=== PATIENT | female | born 1960 | race Caucasian/White ===

== ENCOUNTER → 2019-08-30 09:14 | Outpatient (CLI) | payer MEDICARE, MEDICAID, SELFPAY ==
--- NOTE | 2019-08-30 09:20 | MM_ITS ---
PROCEDURE: MM DIG SCREENING MAMM BI W/CAD Digital Breast Tomosynthesis Included CLINICAL INDICATION: screening There is no personal or family history of breast cancer. COMPARISON: There are no previous exams available for review. TECHNIQUE: Standard CC and MLO images and 3D Tomosynthesis was obtained. R2 CAD reviewed. FINDINGS: Scattered fibroglandular densities are seen in both breasts on a background of fatty breast parenchyma. There are few benign-appearing microcalcifications right breast and a single microcalcification left breast. There is a small benign-appearing nodular density outer quadrant left breast with smooth borders and likely a small cyst. There is no suspicious lesion and no suspicious microcalcifications. IMPRESSION: Fatty type breast parenchyma with no suspicious lesions seen BI-RAD Category: 2 Benign Finding(s) FOLLOW-UP: 1YR 1 Year Follow-up (A letter has been sent to the patient regarding results of the study.) Dictated by: Dr. Jose Alberto Arechiga MD 09/01/2019 12:[address] Jose Alberto Arechiga MD in [place] 09/01/2019 12:08
== END ==
PROVIDERS: PCP Nurse Practitioner Family; Visit Provider Nurse Practitioner Family
DX: Z12.31 Encounter for screening mammogram for malignant neoplasm of breast (principal); R06.02 Shortness of breath
CPT/HCPCS: 77063; 77067; 94060

== ENCOUNTER 2019-09-21 07:06 | Day surgery (SDC) | payer MEDICARE, MEDICAID, SELFPAY ==
[2019-09-21 07:24] VITALS: BMI 22.6
[2019-09-21 07:29] VITALS: BP 150/90; PULSE 78; RESP 18; TEMP 36.9; O2SAT 96
--- NOTE | 2019-09-21 07:42 | SUR.PREOP ---
Pt did not have Covid test prior to coming in today. Pt said no one called her but nurses left 2 messages with pt about information when to come in for Covid test and to call us back. Verified phone number is correct but says she will not answer phone if caller ID does not say who is calling. Covid rapid test drawn in pre-op.
[2019-09-21 08:36] LABS: Coronavirus 19 IgG Antibody Positive (Negative); Coronavirus 19 IgM Antibody Negative (Negative)
--- NOTE | 2019-09-21 08:50 | P.PN_ITS ---
[facility] Anesthesia Checklist - Patient Identification Patient Identification: Arm Band, Verbal (Name & ) - Structural Data Admitted From: Home Planned Operative Procedure/s: Colonoscopy Consent for Planned Operative Procedure(s) Verified: Yes Verified Documents: Surgical Consent, History and Physical - NPO Status Verified Time NPO: 00:00 - Chart Verification Results Verified: None - Additional verifications Anesthesia Reactions: No - Airway Assessment C-Spine Mobility Assessed: Yes TMJ Mobility Assessed: Yes Dentition: Dentures-good fit (upper denture, lower missing teeth) - Neurological Assessment Level of Consciousness: Awake, Alert, Appropriate, Follows Commands Hx Seizures: Yes (06/2019) Numbness or tingling in extremities: No - Anesthesia Plan Anesthesia Risk discussed: Yes Anesthesia Plan: Verified ASA Class: III Anesthesia Type: MAC [facility] History I have reviewed the patient's past medical history: Yes Medical History: Reports:: Anxiety, Congestive Heart Failure, Chronic Obstructive Pulmonary Disease (COPD), Coronary Artery Disease, Depression, Hypertension, Seizures (last seizure 2 months ago) Denies:: Cancer, Diabetes Mellitus Type 1, Diabetes Mellitus Type 2, MRSA *Have you ever received a pneumonia vaccine?: Yes *Have you received a flu vaccine this season?: No Anesthesia experience/problems:: None Other Surgeries: Yes: Cardiac Catheterization, Colonoscopy, Coronary Stent, Tubal Ligation, Other Amputation: No Fractures: Yes - *Social History Last grade of school completed: 11th or 12th Smoking Status: Current every day smoker Tobacco Type: cigarettes # Packs/Day (cigarettes): 1 Alcohol Intake: never Substance Use Type: denies use *Occupational Status:: disabled Housing: house *Travel in the last 8 weeks: None - Psychiatric History Pschychiatric History:: Reports:: Anxiety, Depression Family Hx:: Heart Attack
[2019-09-21 09:07] VITALS: O2SAT 96
[2019-09-21 09:45] VITALS: BP 93/54; PULSE 57; RESP 18; TEMP 36.7; O2SAT 94
--- NOTE | 2019-09-21 09:46 | HMH.SCOPE ---
- Procedure: Date: 09/21/19 Procedure Performed:: Colonoscopy with polypectomy Indications:: Screening colonoscopy Performing Provider:: Gavin Rae MD Referring Provider:: . Sedation:: Monitored anesthesia care Procedure:: After informed consent was obtained the patient was taken to the endoscopy suite. Sedation ensued after the patient was transferred to the left lateral decubitus position. Pulse, blood pressure, and oxygen saturation were monitored throughout the procedure. Digital rectal exam revealed no significant abnormality. The colonoscope was placed in position. The entire colon was evaluated. The colonoscope was carefully removed and the patient was transferred to recovery in stable condition. Please see findings and specimens below for detail. Findings:: Bowel preparation very poor Hemorrhoidal tags Polyps (see specimens) Specimens:: Sessile polyp of the right colon Large complex pedunculated polyp at 30 cm and adjacent polyp (snare) Recommendations:: Timing of repeat colonoscopy is pending pathology but will likely be within 3-6 months (extended prep) Complications:: No immediate with the exception of poor bowel preparation Estimated blood obtained (mL): 1
[2019-09-21 09:55] VITALS: BP 118/66; PULSE 83; RESP 18; O2SAT 95
[2019-09-21 10:05] VITALS: BP 137/95; PULSE 83; RESP 18; O2SAT 93
[2019-09-21 10:19] VITALS: BP 120/73; PULSE 67; RESP 18; O2SAT 96
--- NOTE | 2019-09-21 10:19 | PC.NURSE ---
Transported pt out per W/C to car. Pt's daughter, Carline, driving. Discharge instructions reviewed and copy provided and follow up discussed. Discussed results of pt's rapid Covid test with Carline and since she and other family members are sick, instructed Carline they get tested GUS and quarantine until can do so. Contact health dept or family MD for further instructions. Verbalized understanding and would do it today.
== END 2019-09-21 10:19 | disposition home or self-care (01) ==
LOC: OUTP 07:08
PROVIDERS: PCP Nurse Practitioner Family; Visit Provider Surgery
PROC: 0DJD8ZZ Inspection of Lower Intestinal Tract, Via Natural or Artificial Opening Endoscopic (ICD-10-PCS; CPT 45380; principal; 2019-09-21 09:00)
DX: Z12.11 Encounter for screening for malignant neoplasm of colon (principal); K63.5 Polyp of colon; K64.0 First degree hemorrhoids; F41.9 Anxiety disorder, unspecified; I11.0 Hypertensive heart disease with heart failure; I50.9 Heart failure, unspecified; J44.9 Chronic obstructive pulmonary disease, unspecified; I25.10 Atherosclerotic heart disease of native coronary artery without angina pectoris; R56.9 Unspecified convulsions; Z95.818 Presence of other cardiac implants and grafts; Z72.0 Tobacco use; F32.9 Major depressive disorder, single episode, unspecified
CPT/HCPCS: 45380; 45385; 36415; 86328; 88305

== ENCOUNTER 2022-12-21 11:43 | Emergency (ER) | payer MEDICARE, MEDICAID, SELFPAY ==
[2022-12-21] VITALS (7 sets, daily range): BP systolic 124–148; BP diastolic 86–109; PULSE 99–113; RESP 16–18; TEMP 37.1; O2SAT 96–98; BMI 29.0
[2022-12-21 11:53] LABS: POC Glucose,Bedside 334 (70-110)
--- NOTE | 2022-12-21 11:59 | PC.NURSE ---
Dr. Dickerson at [facility] for pt eval
--- NOTE | 2022-12-21 12:10 | XR_ITS ---
FINAL REPORT CLINICAL HISTORY: Shortness of breath, cough, fever COMPARISON: None FINDINGS: A single portable view of the chest was obtained. The heart size and pulmonary vascularity are within normal limits. The mediastinum is within normal limits. No acute pulmonary abnormality is identified. The bony thorax is intact. IMPRESSION: No active cardiopulmonary disease. Reviewed, Interpreted and Dictated by Bhupendra Peoples III, MD Transcribed by Rosanna Aguilar Authenticated and [facility]
--- NOTE | 2022-12-21 12:15 | PC.NURSE ---
Notified RT of VBG order
--- NOTE | 2022-12-21 12:20 | PC.NURSE ---
RAD at for CXR
[2022-12-21 12:25] LABS: Basophils # 0.1 K/mm3 (0-0.2); Basophils % 0.6 % (0.1-2.0); Eosinophils # 0.3 K/mm3 (0.0-0.4); Eosinophils % 2.9 % (0.1-12.0); Hemoglobin 14.1 g/dL (12.2-16.2); Lymphocytes # 2.7 K/mm3 (0.7-4.5); Lymphocytes % 31.5 % (10-50); Mean Corpuscular HGB Conc 34.4 g/dL (31.8-35.4); Mean Corpuscular Hemoglobin 29.3 pg (27.0-31.2); Mean Corpuscular Volume 85.2 fl (81-99); Mean Platelet Volume 7.8 fl (7.4-10.4); Monocytes # 0.5 K/mm3 (0.1-1.0); Monocytes % 6.1 % (1.7-9.3); Neutrophils # 5.1 K/mm3 (1.8-7.8); Neutrophils % 58.9 % (37.0-80.0); Platelet Count 254 K/mm3 (142-424); Red Blood Count 4.81 M/mm3 (4.20-5.40); Red Cell Distribution Width 14.5 % (11.5-17.5); White Blood Count 8.6 K/mm3 (4.8-10.8)
--- NOTE | 2022-12-21 12:28 | PC.NURSE ---
Pt advised she is unable to provide a urine at this time
[2022-12-21 12:33] LABS: Alanine Aminotransferase 43 U/L (12-78); Albumin Level 4.6 g/dl (3.5-5.0); Albumin/Globulin Ratio 1.2 (1.1-1.8); Alkaline Phosphatase 119 U/L (38-126); Anion Gap 14.9 mEq/L (5-15); Aspartate Amino Transferase 78 U/L (14-36); Bilirubin,Total 0.9 mg/dl (0.2-1.3); Blood Urea Nitrogen 10 mg/dl (7-17); Calcium 10.1 mg/dl (8.4-10.2); Carbon Dioxide 29 mmol/L (22.0-30.0); Chloride 96 mmol/L (98-107); Creatinine Clearance Estimated 76 mL/min (50-200); Estimated Glomerular Filt Rate 85 ml/min (>60); GFR (African American) 103 ML/MIN (>60); Glucose 287 mg/dl (74-100); Potassium 3.9 mmoL/L (3.5-5.1); Sodium 136 mmol/L (136-145); Total Protein,Serum 8.6 g/dl (6.3-8.2); Triglycerides 169 mg/dl (30-150)
--- NOTE | 2022-12-21 12:37 | HMH.EDGENADL ---
Discharge Plan Disposition Patient Disposition: Home, Self-Care Prescriptions Prescriptions: New cefdinir 300 mg capsule 300 mg PO BID 7 Days Qty: 14 0RF No Action ondansetron HCl [Zofran] 4 mg tablet 4 mg PO Q8H PRN (Reason: nausea and vomiting) Qty: 14 0RF carbamazepine 200 MG tablet 200 mg PO BID albuterol sulfate 6.7 GM HFA aerosol inhaler 1 inh inhalation QID fluoxetine 20 MG capsule 60 mg PO DAILY hydroxyzine pamoate 25 MG capsule 25 mg PO TID fluticasone furoate-vilanterol 1 EACH blister with device 1 inh inhalation DAILY Referrals Follow up/Referrals: Irwin Mascorro DO [Staff Physician] - See instructions Provider,Referral, [Primary Care Provider] - See instructions Activity Restrictions/Add. Instructions Additional Instructions/Restrictions: Call your family doctor to establish care for this visit to the emergency department and schedule follow-up within 48 hours to ensure improvement. If you have any worsening of your condition or any other concerning signs or symptoms, return to the emergency department or your primary care doctor for further evaluation. Clinical Impressions Clinical Impression: Acute hyperglycemia, Cough Instructions Patient Instructions: DI for Hyperglycemia -- Adult Discharge ED Provider: Eze Dickerson General Adult HPI General Chief complaint: Hyper/Hypoglycemia Stated complaint: Hyperglycemic Time Seen by Provider: 12/21/22 11:46 Mode of Arrival: Ambulatory Source of Information: Patient Limitations: No Limitations Description of Symptoms (Recalled from ER Triage Doc. by RN): Pt arrives via ems. C/o high blood glucose. States that for the last 3 days she has felt shaky with a headache. Pt states that she has been getting her blood glucose checked where she lives for the last few days and it has gotten higher each day. Pt states that she hasnt eaten since yesterday. History of Present Illness HPI narrative: 62-year-old female history of hypertension, hyperlipidemia, alcoholic cirrhosis no longer drinking, COPD, hyperglycemia, but no definitive diagnosis of diabetes presenting with high blood pressure and shakiness. Patient states that she has been feeling shaky the past couple of days. This been associated with cough, fevers, general malaise. She has been checking her blood sugar with the neighbors [id number] glucose monitor and it has been 300-500 for the past 3 to 4 days. Denies nausea vomiting, abdominal pain, diarrhea, constipation, chest pain, but has had some shortness of breath with this cough. Cough is productive of yellow sputum. No sick contacts he knows of Related Data Home Medications Medication Instructions Recorded Confirmed albuterol sulfate 90 mcg/actuation 1 inh inhalation QID COPD 09/19/19 12/13/19 aerosol inhaler carbamazepine 200 mg tablet 200 mg PO BID seizures 09/19/19 12/13/19 fluoxetine 20 mg capsule 60 mg PO DAILY Depression 09/19/19 12/13/19 fluticasone furoate 100 1 inh inhalation DAILY Allergy 09/19/19 12/13/19 mcg-vilanterol 25 mcg/dose symptoms inhalation powder hydroxyzine pamoate 25 mg capsule 25 mg PO TID Nausea & vomiting 09/19/19 12/13/19 Previous Rx's Medication Instructions Recorded ondansetron HCl 4 mg tablet 4 mg PO Q8H PRN nausea and 08/22/19 (Zofran) vomiting #14 tabs cefdinir 300 mg capsule 300 mg PO BID 7 days #14 caps 12/21/22 Allergies Allergy/AdvReac Type Severity Reaction Status Date / Time Penicillins Allergy Mild Verified 12/21/22 12:43 [facility] Disclaimer: The information contained in this section may have been updated after the patient was seen, as this information can be updated by other users. Social History (System 12/21/22 @ 12:43 by Marlyn Talley) Smoking Status: Former smoker tobacco type: cigarettes packs per day: 1 second hand exposure: Yes alcohol intake: never substance use type: denies use current occupational status:
[2022-12-21 12:45] LABS: VBG Base Excess 1.7 mmol/L (-2.4-2.3); VBG HCO3 27.5 mmol/L (23-30); VBG Oxygen Saturation 84.9 % (50-70); VBG PH 7.34 mmol/L (7.31-7.41); VBG PO2 52.2 mmol/L (28-40); VBG Total CO2 29.1 mmol/L (23-27)
[2022-12-21 12:50] LABS: T4 (Thyroxine) 4.4 ug/dl (5.53-11.0)
[2022-12-21 12:55] LABS: VBG PCO2 52.2 mmol/L (35-51)
[2022-12-21 13:00] LABS: Hemoglobin A1C 6.1 % (4.0-6.0)
[2022-12-21 13:04] LABS: Thyroid Stimulating Hormone 3.12 uIU/mL (0.465-4.68)
[2022-12-21 13:06] LABS: Lactic Acid 2.3 mmol/L (0.7-2.1)
[2022-12-21 13:07] LABS: Microscopic, Urine URINE MICROSCOPIC (MICROSCOPIC)
[2022-12-21 13:15] LABS: Appearance,Urine CLEAR (Clear); Bilirubin,Urine Negative (Negative); Blood, Urine Negative (Negative); Color,Urine YELLOW (Yellow); Glucose,Urine (UA) 3+ (Negative); Ketones,Urine Negative (Negative); Leukocyte Esterase,Urine Negative (Negative); Nitrate,Urine Negative (Negative); Protein,Urine Negative (Negative); Urobilinogen,Urine 0.2 EU/dl (0.2)
[2022-12-21 13:27] LABS: Squamous Epithelial Cell,Urine Occasional #/hpf (0-5)
--- NOTE | 2022-12-21 14:28 | PC.NURSE ---
Dr. Dickerson at [facility] to update pt on results and POC
[2022-12-21 15:01] LABS: Reflex Lactic Add Lactic Reflex
[2022-12-21 15:06] LABS: POC Glucose,Bedside 125 (70-110)
[2022-12-21 15:28] LABS: Lactic Acid Follow Up (RFLX 1) 2.3 mmol/L (0.7-2.1)
--- NOTE | 2022-12-21 15:43 | PC.NURSE ---
called care management for transportation
--- NOTE | 2022-12-21 15:51 | SW/DCPLANNER ---
I have arranged [facility] for this patient.
[2022-12-21 17:14] LABS: Reflex Lactic (2 hrs) Add Lactic Reflex
== END 2022-12-21 16:23 | disposition home or self-care (01) ==
PROVIDERS: Emergency Provider Emergency Medicine
DX: R73.9 Hyperglycemia, unspecified (principal); R05.9 Cough, unspecified; J44.9 Chronic obstructive pulmonary disease, unspecified; I10 Essential (primary) hypertension; E78.5 Hyperlipidemia, unspecified; K70.30 Alcoholic cirrhosis of liver without ascites; F10.91 Alcohol use, unspecified, in remission; Z87.891 Personal history of nicotine dependence
CPT/HCPCS: 71045; 80053; 81001; 82803; 82962; 83036; 83605; 84436; 84443; 84478; 85025; 96361; 96365; 96374; 96375; 99284; J3475